=== PATIENT | female | born 1930 | race Asian ===

== ENCOUNTER → 2018-10-20 | Outpatient (CLI) | payer MEDICARE, MEDICAID ==
[~2018-10-20] MED LIST: ACET-784 PO; AMLO-512 PO; ASPI-1198 PO; CLOP75TA17 PO; ISOS30TA6 PO; LOPE2 PO; METO25TA6 PO; SIMV40TA5 PO; TRAM50TA4 PO; VALS320T2 PO
== END | disposition home or self-care (01) ==
LOC: RADPV 09:53
PROVIDERS: ATTEND Internal Medicine Nephrology
DX: S92.532A Displaced fracture of distal phalanx of left lesser toe(s), initial encounter for closed fracture (principal); I70.202 Unspecified atherosclerosis of native arteries of extremities, left leg; M17.12 Unilateral primary osteoarthritis, left knee; X58.XXXA Exposure to other specified factors, initial encounter; Y93.89 Activity, other specified; Y92.89 Other specified places as the place of occurrence of the external cause; Y99.8 Other external cause status; Z87.828 Personal history of other (healed) physical injury and trauma